=== PATIENT | male | born 1975 | race American Indian/Alaskan Native ===

== ENCOUNTER 2023-06-20 20:04 | Emergency (ER) | payer MEDICAID ==
[~2023-06-20] VITALS: Ht 172.7 cm; Wt 101.2 kg
[2023-06-20 20:24] VITALS: BP 113/68; TEMP 99.4; O2SAT 98
[2023-06-20] MEDS ORDERED: PENI500T PO (20:32)
== END 2023-06-20 20:53 | disposition home or self-care (01) ==
LOC: ER 20:07
DX: J02.9 Acute pharyngitis, unspecified (principal)

== ENCOUNTER 2023-08-02 09:26 | Emergency (ER) | payer MEDICAID ==
[~2023-08-02] VITALS: Ht 177.8 cm; Wt 99.8 kg
[~2023-08-02 09:26] MED LIST: PENI500T PO
[2023-08-02] MEDS ORDERED: KETOROLAC TROMETHAMINE 15 MG/ML VIAL ONE (09:45)
[2023-08-02] MEDS: KETOROLAC TROMETHAMINE 15 MG/ML VIAL IM ONE (09:54)
[2023-08-02 10:31] VITALS: BP 123/67; TEMP 98; O2SAT 98
== END 2023-08-02 10:32 | disposition home or self-care (01) ==
LOC: ER 09:34
DX: S83.92XA Sprain of unspecified site of left knee, initial encounter (principal); X58.XXXA Exposure to other specified factors, initial encounter; Y93.89 Activity, other specified; Y92.89 Other specified places as the place of occurrence of the external cause; Y99.8 Other external cause status
CPT/HCPCS: 99283; 96372; 73564; J1885